=== PATIENT | male | born 1950 | race Caucasian/White ===

== ENCOUNTER 2024-12-29 00:14 | Day surgery (SDC) | payer BC, SELFPAY ==
[2024-12-13 13:40] VITALS: BMI 27.9
--- OUTSIDE RECORDS SUMMARY | 2024-12-29 00:16 | XMS_ITS | Encounter Summary ---
Author Organization [facility] Address [address] [place] [address] Care Team Providers Care Lime Sludge Kiln Operator Name Role Phone Ty Sykes MD Primary Care Provider [phone] Encounter Details Date Type Department Care Team (Late st Contact Info) Description 01/13/2023 Lab Requisition [facility] [address] [place] [id number] Bertrand Ernandez MD [address] [place] [address] Social History Tobacco Use Types Packs/Day Years Used Date Smoking Tobacco: Never Assessed Sex and Gender Information Value Date Recorded Sex Assigned at Not on file Gender Identity Not on file Sexual Orientation Not on file documented as of this encounter Plan of Treatment Not on file documented as of this encounter Procedures Procedure Name Priority Date/Time Associated Diagnosis Comments DERMATOPATHOLOGY Routine 01/13/2023 12:0 0 AM [facility] TESTER documented in this encounter Results * DERMATOPATHOLOGY (01/13/2023 12:00 AM ARGON TESTER) Case Report Dermatopathology Report Case: [id number] Authorizing Provider: Bertrand Ernandez MD Collected: 01/13/2023 12:00 AM Ordering Location: [facility] Received: 01/13/2023 02:27 PM Pathologist: Fatemeh Adan MD Specimen: Skin, posterior neck 12:43 PM [facility]ERMATOP[facility]ORATORY Final Diagnosis Specimen A. SKIN, posterior neck: BASAL CELL CARCINOMA, NODULAR TYPE (C44.41) PRESENT AT MARGIN DERMAL SCAR (L90.5) 12:43 PM [facility]ERMAT[facility] Clinical History Recur BCC. Check Margins. 3 12:43 PM [facility] DERMATOPATHOLOGY LABORATORY Gross Description Specimen A: Received is one formalin filled container labeled with the patient's name and designated posterior neck. The specimen consists of a shave biopsy measuring 8x6x2 mm. Jar 0. 3 12:43 PM [facility] DERMATOPATHOLOGY LABORATORY Microscopic Description Specimen A. SKIN, posterior neck: Within the dermis there are aggregates of basaloid cells with a high nuclear to cytoplasmic ratio and peripheral palisading. This lesion is present at the margin of the specimen. There are fibroblasts and collagen bundles oriented parallel to the skin surface with elongated blood vessels, some of which are oriented perpendicular to the skin surface. 3 12:43 PM [facility] DERMATOPATHOLOGY LABORATORY Disclaimer An external and internal positive and negative controls are appropriate for the histochemical, immunohistochemical and immunofluorescence stain(s) in this case (if any), except where stated explicitly. The performance characteristics of the stain(s) cited in this report were developed and its performance characteristic determined by the Dermatopathology Laboratory at [facility], directed by Dr. Soco Patel. These tests need not be, and therefore are not, approved by the [place] Food and Drug Administration. The tests are used for clinical purposes. Billing Codes Specimen Charges Stain Charges 12440 1 3 12:43 PM [facility] DERMATOPATHOLOGY LABORATORY Embedded Images 3 12:43 PM [facility] DERMATOPATHOLOGY LABORATORY Pathology/Cytolog y TISSUE SPECIMEN FROM SKIN / Unknown 01/13/2023 01/13/2023 2:27 PM [facility] Bertrand Ernandez MD LAB - PATHOLOGY/CYTO LOGY ORDERABLES DERMATOPATHOLOGY LABORATORY [facility] - Department of Dermatology [facility] Medicine [address] [place] [address], [address] [phone] documented in this encounter Visit Diagnoses Not on filedocumented in this encounter Care Teams Lime Sludge Kiln Operator Relationship Specialty Start Date End Date Ty Sykes MD [address] [place] [address] PCP - General 01/13/23 documented as of this encounter
--- OUTSIDE RECORDS SUMMARY | 2024-12-29 00:16 | XMS_ITS | Patient Health Summary ---
Author Organization [facility] Address [address] [facility] [address] Care Team Providers Care Scalp Treatment Operator Name Role Phone Ty Sykes MD Primary Care Provider Note from [facility],non-owned Affiliates and Associated Physician Practices is amultiple site organization consisting of ambulatory clinics and hospital sitesin [place], [place], [place]. This disclosure is being madepursuant to the Care Everywhere program and may not contain all information available regarding this patient. Last updated 18.[facility] Social History Tobacco Use Types Packs/Day Years Used Date Smoking Tobacco: Never Assessed Sex and Gender Information Value Date Recorded Sex Assigned at Not on file Gender Identity Not on file Sexual Orientation Not on file Procedures * DERMATOPATHOLOGY(Performed 03/26/2023) Performed for Basal cell carcinoma of skin of scalp and neck [ICD-10-CM] * DERMATOPATHOLOGY(Performed 01/13/2023) Results * DERMATOPATHOLOGY (03/26/2023 3:33 AM CDT) Only the most recent of2 resultswithin the time period is included. Case Report Dermatopathology Report Case: [id number] Authorizing Provider: Telma Michael MD Collected: 03/26/2023 03:33 AM Ordering Location: [facility] Received: 03/28/2023 01:21 PM Pathologist: Josiane Dobbs MD Specimen: Skin, posterior neck 3 4:08 PM CDT DERMATOPATHOLOGY LABORATORY Final Diagnosis Specimen A. SKIN, posterior neck: BASAL CELL CARCINOMA, NOT PRESENT AT MARGIN (C44.41) COMPOUND MELANOCYTIC NEVUS, IRRITATED; APPROXIMATES MARGIN (D22.4) DERMAL SCAR (L90.5) (see microscopic description) 3 4:08 PM CDT DERMATOPATHOLOGY LABORATORY Clinical History Basal Cell Carcinoma. Please Check Margins. See Prior Biopsy Report. 3 4:08 PM [facility] DERMATOPATHOLOGY LABORATORY Gross Description Specimen A: Received is one formalin filled container labeled with the patient's name and designated posterior neck. The specimen consists of a non-oriented ellipse of skin measuring [id number]. There is a lesion measuring 12x8mm and it is inked. The epidermal surface is unremarkable. The margin is inked green. The 12 o'clock and 6 o'clock tips are submitted in cassette 1. The remainder of the ellipse is serially sectioned and submitted in cassette 2 -4. Jar 0. 3 4:08 PM [facility] DERMATOPATHOLOGY LABORATORY Microscopic Description Specimen A. SKIN, posterior neck: Within the dermis there are aggregates of basaloid cells with a high nuclear to cytoplasmic ratio and peripheral palisading. This lesion is not present at the margin of the specimen. There is melanin pigment in the stratum corneum. There are nests of melanocytes at the dermal-epidermal junction and within the dermis. This lesion approximates the margin of the specimen. There are fibroblasts and collagen bundles oriented parallel to the skin surface with elongated blood vessels, some of which are oriented perpendicular to the skin surface. 3 4:08 PM [facility] DERMATOPATHOLOGY LABORATORY Disclaimer An external and internal positive and negative controls are appropriate for the histochemical, immunohistochemical and immunofluorescence stain(s) in this case (if any), except where stated explicitly. The performance characteristics of the stain(s) cited in this report were developed and its performance characteristic determined by the Dermatopathology Laboratory at [facility], directed by Dr. Soco Patel. These tests need not be, and therefore are not, approved by the [place] Food and Drug Administration. The tests are used for clinical purposes. Billing Codes Specimen Charges Stain Charges 60725 1 3 4:08 PM T DERMATOPATHOLOGY LABORATORY Embedded Images 3 4:08 PM [facility] DERMATOPATHOLOGY LABORATORY Pathology/Cytolo gy TISSUE SPECIMEN FROM SKIN / Unknown 03/26/2023 3:33 AM CDT 03/28/2023 1:21 PM CDT Telma Michael MD LAB - PATHOLOGY/CYTO LOGY ORDERABLES DERMATOPATHOLOGY LABORATORY [facility] - Department of Dermatology [address], [address] [phone] Care Teams Scalp Treatment Operator Relationship Specialty Start Date End Date Ty Sykes MD [address] [place] [id number] PCP - General 01/13/23
--- OUTSIDE RECORDS SUMMARY | 2024-12-29 00:16 | XMS_ITS | Clinical Summary ---
Author Organization [facility] Address [address] [place] [address] Care Team Providers Care Purchasing Officer Name Role Phone Ty Sykes MD Primary Care Provider [phone] Source Comments [facility],non-owned Affiliates and Associated Physician Practices is amultiple site organization consisting of ambulatory clinics and hospital sitesin [place], [place], [place] and [place]. This disclosure is being madepursuant to the Care Everywhere program and may not contain all information available regarding this patient. Last updated 18.[facility] [place] Social History Tobacco Use Types Packs/Day Years Used Date Smoking Tobacco: Never Assessed Sex and Gender Information Value Date Recorded Sex Assigned at Not on file Gender Identity Not on file Sexual Orientation Not on file Plan of Treatment Health Maintenance Due Date Last Done Comments HEPATITIS C SCREENING 05/02/1966 DTAP/TDAP/TD VACCINES (1 - Tdap) 1967 PNEUMOCOCCAL VACCINE 50+ (1 of 1 - PCV) 1998 ZOSTER VACCINE (1 of 2) 1998 Respiratory Syncytial Virus (RSV) Vaccine Pt: or over 60 yrs (1 - 1-dose 75+ series) 2023 COVID-19 VACCINE ( - 2023-2 5 season) 2024 INFLUENZA VACCINE (#1) 2024 DEPRESSION SCREENING 11/09/2024 HEPATITIS B VACCINE Aged Out No longe r eligible based on patient's age to complete this topic HIB VACCINE Aged Out No longer eligi ble based on patient's age to complete this topic HPV VACCINE Aged Out No longer eligi ble based on patient's age to complete this topic MENINGOCOCCAL (Group B) VACCINE Aged Out No longer eligible based on patient's age to complete this topic MENINGOCOCCAL VACCINE Aged Out No ileana romeo eligible based on patient's age to complete this topic Care Teams Purchasing Officer Relationship Specialty Start Date End Date Ty Sykes MD [address] [place] [address] PCP - General 01/13/23
--- OUTSIDE RECORDS SUMMARY | 2024-12-29 00:16 | XMS_ITS | Encounter Summary ---
Author Organization [facility] Address [address] [place] [address] Care Team Providers Care Horse Identifier Name Role Phone Ty Sykes MD Primary Care Provider [phone] Encounter Details Date Type Department Care Team (Late st Contact Info) Description 03/26/2023 Lab Requisition [facility] - DermPath Lab [address] [place] [address] Telma Michael MD [address] [place] [place] [address] Basal cell carcinoma of skin of scalp and neck Social History Tobacco Use Types Packs/Day Years Used Date Smoking Tobacco: Never Assessed Sex and Gender Information Value Date Recorded Sex Assigned at Not on file Gender Identity Not on file Sexual Orientation Not on file documented as of this encounter Plan of Treatment Not on file documented as of this encounter Procedures Procedure Name Priority Date/Time Associated Diagnosis Comments DERMATOPATHOLOGY Routine 03/26/2023 3:33 AM CDT Basal cell carcinoma of skin of scalp and neck [ICD-10-CM] documented in this encounter Results * DERMATOPATHOLOGY (03/26/2023 3:33 AM CDT) Case Report Dermatopathology Report Case: [id number] Authorizing Provider: Telma Michael MD Collected: 03/26/2023 03:33 AM Ordering Location: [facility] Lab Received: 03/28/2023 01:21 PM Pathologist: Josiane Dobbs MD Specimen: Skin, posterior neck 4:08 PM CDT DERMATOPATHOLOGY LABORATORY Final Diagnosis Specimen A. SKIN, posterior neck: BASAL CELL CARCINOMA, NOT PRESENT AT MARGIN (C44.41) COMPOUND MELANOCYTIC NEVUS, IRRITATED; APPROXIMATES MARGIN (D22.4) DERMAL SCAR (L90.5) (see microscopic description) 3 4:08 PM T DERMATOPATHOLOGY LABORATORY Clinical History Basal Cell Carcinoma. Please Check Margins. See Prior Biopsy Report. 3 4:08 PM T DERMATOPATHOLOGY LABORATORY Gross Description Specimen A: Received is one formalin filled container labeled with the patient's name and designated posterior neck. The specimen consists of a non-oriented ellipse of skin measuring [id number]. There is a lesion measuring 12x8mm and it is inked. The epidermal surface is unremarkable. The margin is inked green. The 12 o'clock and 6 o'clock tips are submitted in cassette 1. The remainder of the ellipse is serially sectioned and submitted in cassette 2 -4. Jar 0. 3 4:08 PM [facility] DERMATOPATHOLOGY LABORATORY Microscopic Description Specimen A. SKIN, [...] to the skin surface. 3 4:08 PM [facility] DERMATOPATHOLOGY LABORATORY Disclaimer An external and internal positive and negative controls are appropriate for the histochemical, immunohistochemical and immunofluorescence stain(s) in this case (if any), except where stated explicitly. The performance characteristics of the stain(s) cited in this report were developed and its performance characteristic determined by the Dermatopathology Laboratory at [facility], directed by Dr. Soco Patel. These tests need not be, and therefore are not, approved by the [place] Food and Drug Administration. The tests are used for clinical purposes. Billing Codes Specimen Charges Stain Charges 72959 1 3 4:08 PM CDT DERMATOPATHOLOGY LABORATORY Embedded Images 3 4:08 PM T DERMATOPATHOLOGY LABORATORY Pathology/Cytolo gy TISSUE SPECIMEN FROM SKIN / Unknown 03/26/2023 3:33 AM CDT 03/28/2023 1:21 PM CDT Telma Michael MD LAB - PATHOLOGY/CYTO LOGY ORDERABLES DERMATOPATHOLOGY LABORATORY [facility] Department of Dermatology [facility] Medicine [address] [place] [address], [address] [phone] documented in this encounter Visit Diagnoses Diagnosis Basal cell carcinoma of skin of scalp and neck Basal cell carcinoma of scalp and skin of neck documented in this encounter Care Teams Horse Identifier Relationship Specialty Start Date End Date Ty Sykes MD [address] [place] [id number] PCP - General 01/13/23 documented as of this encounter
--- OUTSIDE RECORDS SUMMARY | 2024-12-29 00:16 | XMS_ITS | Referral Summary ---
Author Organization [facility] Address [address] [place] [address] Care Team Providers Care Video Library Assistant Name Role Phone Ty Sykes MD Primary Care Provider Source Comments [facility],non-owned Affiliates and Associated Physician Practices is amultiple site organization consisting of ambulatory clinics and hospital sitesin [place], [place]. This disclosure is being madepursuant to the Care Everywhere program and may not contain all information available regarding this patient. Last updated 18.[facility] [employer] Social History Tobacco Use Types Packs/Day Years Used Date Smoking Tobacco: Never Assessed Sex and Gender Information Value Date Recorded Sex Assigned at Not on file Gender Identity Not on file Sexual Orientation Not on file Plan of Treatment Not on file Care Teams Video Library Assistant Relationship Specialty Start Date End Date Ty Sykes MD [address] [place] [address] PCP - General 01/13/23
[2024-12-29 06:58] VITALS: BP 138/80; PULSE 84; RESP 18; TEMP 36.1; O2SAT 98
[2024-12-29] MEDS: LACTATED RINGERS 1,000 ML 150 ML IV CONT (07:11)
--- NOTE | 2024-12-29 07:21 | WPDANESEPPF ---
Anes - Initial Pre Proc Eval Procedure: Operation Date: 12/29/24 08:00 Proposed Procedures p Screening Colonoscopy - Dada Tee MD Date/Time: 12/29/24 07:21 Surgeon: Dada Tee MD Pre Op Diagnosis: personal hx colon polyps Patient Data Age: 74 Gender: M Height: 1.8 m Weight: 91.2 kg Last Vital Signs Temp 97 F L 12/29/24 06:58 Pulse 84 12/29/24 06:58 Resp 18 12/29/24 06:58 BP 138/80 12/29/24 06:58 Pulse Ox 98 12/29/24 06:58 O2 Del Method Room Air 12/29/24 06:58 Allergies Allergy/AdvReac Type Severity Reaction Status Date / Time No Known Allergies Allergy Verified 12/29/24 06:56 Home Medications ?Medication ?Instructions ?Recorded ?Confirmed ?Type omega-3 fatty acids 1,000 mg 1,000 mg PO DAILY 12/03/20 12/29/24 History capsule (Fish Oil Concentrate) omeprazole 20 mg capsule,delayed 20 mg PO DAILY 12/03/20 12/29/24 History release cholecalciferol (vitamin D3) 50 50 mcg PO DAILY 12/04/20 12/29/24 History mcg (2,000 unit) capsule cetirizine 10 mg capsule (Zyrtec) 10 mg PO DAILY 09/10/22 12/29/24 History ascorbic acid (vitamin C) 1,000 mg 1 g PO DAILY 01/20/23 12/29/24 History tablet atorvastatin 20 mg tablet See Rx Instructions .Route 09/26/24 12/29/24 Rx .COMPLEX #90 tabs amlodipine 10 mg tablet See Rx Instructions .Route 11/21/24 12/29/24 Rx .COMPLEX #90 tabs valsartan 160 mg tablet 160 mg PO DAILY #90 tabs 11/22/24 12/29/24 Rx Patient hx anesthesia problems: none Family hx anesthesia problems: none Results Review: All pre-operative results and documents have been reviewed as part of the pre-operative evaluation. [facility] Past Medical History Medical History History of colon polyps Chronic GERD Hyperlipidemia Surgical History Surgical History History of appendectomy Family History Family History Mother , aorta blocked No problems noted. Father Lung cancer Social History Social History Social History: Smoked for 10 year - cigars Smoking status: Former smoker Tobacco type: cigars Second hand tobacco smoke exposure: Yes Smoking end date: 10/15/17 Alcohol intake: never Substance use: never Substance use type: does not use Lack of Transportation: No Lack of Food: Sometimes True Current Housing: I Have Housing Concerned About Future Housing: No Difficulty Paying Gas/Electric Bills: No Difficulty Paying for Meds: No Currently Unemployed: No Education: Bachelor's Degree Difficulty w/ Childcare or Family Care: No Living arrangements: with family Occupation/Education: retired 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: 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 HTN, hyperlipidemia, ex smoker, quit several years ago. Informed Consent: The patient's anesthetic plan and its attendant risks and benefits were discussed with the patient/family/POA. Questions were solicited and answers provided to the satisfaction of the patient/family/POA.
--- NOTE | 2024-12-29 07:51 | PM.HPGS ---
History of Present Illness History of Present Illness Consent: Risks, benefits, and alternatives have been discussed and questions answered. Patient agrees to proceed with procedure. Chief complaint: personal hx colon polyps Narrative: Jeremi Jansen is a 74 year old male with colon polyp 5 years ago Review of Systems Review of Systems: All systems reviewed & are unremarkable except as noted in HPI and below PMFSH Past Medical History Medical History History of colon polyps Chronic GERD Hyperlipidemia Surgical History Surgical History History of appendectomy Family History Family History Mother , aorta blocked No problems noted. Father Lung cancer Social History Social History Social History: Smoked for 10 year - cigars Smoking status: Former smoker Tobacco type: cigars Second hand tobacco smoke exposure: Yes Smoking end date: 10/15/17 Alcohol intake: never Substance use: never Substance use type: does not use Lack of Transportation: No Lack of Food: Sometimes True Current Housing: I Have Housing Concerned About Future Housing: No Difficulty Paying Gas/Electric Bills: No Difficulty Paying for Meds: No Currently Unemployed: No Education: Bachelor's Degree Difficulty w/ Childcare or Family Care: No Living arrangements: with family Occupation/Education: retired 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 Gender identity (if verbalized by the patient): Male Sexual Orientation (if Verbalized by the Patient): Straight or Heterosexual Meds Home Medications and Allergies Home Medications ?Medication ?Instructions ?Recorded ?Confirmed ?Type omega-3 fatty acids 1,000 mg 1,000 mg PO DAILY 12/03/20 12/29/24 History capsule (Fish Oil Concentrate) omeprazole 20 mg capsule,delayed 20 mg PO DAILY 12/03/20 12/29/24 History release cholecalciferol (vitamin D3) 50 50 mcg PO DAILY 12/04/20 12/29/24 History mcg (2,000 unit) capsule cetirizine 10 mg capsule (Zyrtec) 10 mg PO DAILY 09/10/22 12/29/24 History ascorbic acid (vitamin C) 1,000 mg 1 g PO DAILY 01/20/23 12/29/24 History tablet atorvastatin 20 mg tablet See Rx Instructions .Route 09/26/24 12/29/24 Rx .COMPLEX #90 tabs amlodipine 10 mg tablet See Rx Instructions .Route 11/21/24 12/29/24 Rx .COMPLEX #90 tabs valsartan 160 mg tablet 160 mg PO DAILY #90 tabs 11/22/24 12/29/24 Rx Allergies Allergy/AdvReac Type Severity Reaction Status Date / Time No Known Allergies Allergy Verified 12/29/24 06:56 Vital Signs Vital Signs - 24 hr 12/29/24 06:58 Temperature 97 F L Pulse Rate 84 Respiratory Rate 18 Blood Pressure 138/80 Pulse Oximetry 98 Oxygen Delivery Room Air Exam Const: General: comfortable and no acute distress HENMT: Face/Nose/Sinus: Normal nares present Eyes: General: appearance normal, both eyes and all related structures Neck: Neck: no JVD Resp: Auscultation: clear to auscultation bilaterally Cardio: Rate: regular rate Rhythm: regular rhythm GI: Inspection: non-distended GI Palp: Yes Soft to palpation Skin: General skin exam: normal color Neuro: General: gait normal Speech: normal speech Extrem: General: normal to inspection Psych: Mental Status: mental status grossly normal Assessment and Plan Assessment and plan (1) History of colon polyps: Code(s): Z86.010 - Personal history of colon polyps Status: Acute Assessment and Plan: colonoscopy
[2024-12-29 08:09] VITALS: BP 113/73; PULSE 62; RESP 12; O2SAT 92
[2024-12-29 08:19] VITALS: BP 114/74; PULSE 59; RESP 12; O2SAT 93
[2024-12-29 08:29] VITALS: BP 126/79; PULSE 64; RESP 22; O2SAT 96
== END 2024-12-29 08:40 | disposition home or self-care (01) ==
PROVIDERS: PCP Family Medicine; Referring Provider Family Medicine; Visit Provider Internal Medicine Gastroenterology
PROC: 0DJD8ZZ Inspection of Lower Intestinal Tract, Via Natural or Artificial Opening Endoscopic (ICD-10-PCS; CPT 45378; principal; 2024-12-29 08:00)
DX: Z12.11 Encounter for screening for malignant neoplasm of colon (principal); D12.2 Benign neoplasm of ascending colon; D12.3 Benign neoplasm of transverse colon; D12.4 Benign neoplasm of descending colon; K57.30 Diverticulosis of large intestine without perforation or abscess without bleeding; K64.8 Other hemorrhoids; Z87.891 Personal history of nicotine dependence
CPT/HCPCS: 45385; 88305; J2003; J2704; J7120

== ENCOUNTER 2025-10-25 14:31 | Outpatient (CLI) | payer BC, SELFPAY ==
--- NOTE | ~2025-10-25 | XR_ITS ---
EXAMINATION: XR chest 2V, 10/25/2025 14:38 [facility] HISTORY: R05.9 - Cough, unspecified COMPARISON: No comparisons available. Technique: 2 views obtained. Findings: The lungs are clear, no effusion. No pneumothorax. Heart is normal size. Mediastinal and hilar contours are within normal limits. Bony thorax no acute abnormality. Impression: No acute cardiopulmonary abnormality. Reviewed, dictated and finalized at location P. ER DRIER Impression: No acute cardiopulmonary abnormality.
--- OUTSIDE RECORDS SUMMARY | 2025-10-25 17:21 | XMS_ITS | Encounter Summary ---
Author Organization [facility] Address [address] [place] [address] Care Team Providers Care Assistant Professor Of Communication Name Role Phone Ty Sykes MD Primary Care Provider [phone] Encounter Details Date Type Department Care Team (Late st Contact Info) Description 01/13/2023 Lab Requisition [facility] DermPath Lab [address] [place] [address] [place] [address] [place] [id number] Social History Tobacco Use Types Packs/Day Years Used Date Smoking Tobacco: Never Assessed Sex and Gender Information Value Date Recorded Sex Assigned at Not on file Legal Sex Male 2:22 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 Gender Identity Not on file Sexual Orientation Not on file documented as of this encounter Plan of Treatment Not on file documented as of this encounter Procedures Procedure Name Priority Date/Time Associated Diagnosis Comments DERMATOPATHOLOGY Routine 01/13/2023 12:0 0 AM PICKED EDGE SEWING MACHINE OPERATOR documented in this encounter Results * DERMATOPATHOLOGY (01/13/2023 12:00 AM PICKED EDGE SEWING MACHINE OPERATOR) Case Report Dermatopathology Report Case: [id number] Authorizing Provider: Bertrand Ernandez MD Collected: 01/13/2023 12:00 AM Ordering Location: [facility] DermPath Lab Received: 01/13/2023 02:27 PM Pathologist: Fatemeh Adan MD Specimen: Skin, posterior neck 12:43 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 DERMATOPATHOLOGY LABORATORY Final Diagnosis Specimen A. SKIN, posterior neck: BASAL CELL CARCINOMA, NODULAR TYPE (C44.41) PRESENT AT MARGIN DERMAL SCAR (L90.5) 3 12:43 PM [facility] DERMATOPATHOLOGY LABORATORY at 1243 PICKED EDGE SEWING MACHINE OPERATOR Clinical History Recur BCC. Check Margins. 3 12:43 PM [facility] DERMATOPATHOLOGY LABORATORY Gross Description Specimen A: Received is one formalin filled container labeled with the patient's name and designated posterior neck. The specimen consists of a shave biopsy measuring 8x6x2 mm. Jar 0. 3 12:43 PM [facility] DERMATOPATHOLOGY LABORATORY Microscopic Description Specimen A. [...] to the skin surface. 3 12:43 PM [facility] DERMATOPATHOLOGY LABORATORY Disclaimer An external and internal positive and negative controls are appropriate for the histochemical, immunohistochemical and immunofluorescence stain(s) in this case (if any), except where stated explicitly. The performance characteristics of the stain(s) cited in this report were developed and its performance characteristic determined by the Dermatopathology Laboratory at [facility], directed by Dr. Soco Patel. These tests need not be, and therefore are not, approved by the [place] Food and Drug Administration. The tests are used for clinical purposes. Billing Codes Specimen Charges Stain Charges 19881 1 3 12:43 PM [facility] DERMATOPATHOLOGY LABORATORY Embedded Images 3 12:43 PM [facility] DERMATOPATHOLOGY LABORATORY Pathology/Cytolog y TISSUE SPECIMEN FROM SKIN / Unknown 01/13/2023 01/13/2023 2:27 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 us Bertrand Ernandez MD LAB - PATHOLOGY/CYTOLOGY ORDERAB LES Final Result DERMATOPATHOLOGY LABORATORY [facility] - Department of Dermatology [address], [address] [phone] documented in this encounter Visit Diagnoses Not on filedocumented in this encounter Care Teams Assistant Professor Of Communication Relationship Specialty Start Date End Date Ty Sykes MD [address] [place] [id number] PCP - General 01/13/23 documented as of this encounter
--- OUTSIDE RECORDS SUMMARY | 2025-10-25 17:21 | XMS_ITS | Encounter Summary ---
Author Organization [facility] Address [address] [place] [address] Care Team Providers Care Solid Propellant Processor Name Role Phone Ty Sykes MD Primary Care Provider [phone] Encounter Details Date Type Department Care Team (Late st Contact Info) Description 03/26/2023 Lab Requisition [facility] - DermPath Lab [address] [place] [phone] Telma Michael MD [address] [place] [address] [place] [address] Basal cell carcinoma of skin of scalp and neck Social History Tobacco Use Types Packs/Day Years Used Date Smoking Tobacco: Never Assessed Sex and Gender Information Value Date Recorded Sex Assigned at Not on file Legal Sex Male 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 SKIN, posterior neck: BASAL CELL CARCINOMA, NOT PRESENT AT MARGIN (C44.41) COMPOUND MELANOCYTIC NEVUS, IRRITATED; APPROXIMATES MARGIN (D22.4) DERMAL SCAR (L90.5) (see microscopic description) 3 4:08 PM [facility] DERMATOPATHOLOGY LABORATORY at 1607 CDT Clinical History Basal Cell Carcinoma. Please Check Margins. See Prior Biopsy Report. 3 4:08 PM [facility] DERMATOPATHOLOGY LABORATORY Gross Description Specimen A: Received is one formalin filled container labeled with the patient's name and designated posterior neck. The specimen consists of a non-oriented ellipse of skin measuring [id number]. There is a lesion measuring 12x8mm and it is inked. The epidermal surface is unremarkable. The margin is inked green. The 12 o'clock and 6 o'clock tips are submitted in cassette 1. The remainder of the ellipse is serially sectioned and submitted in cassette 2 -4. Jar 0. 3 4:08 PM [facility] DERMATOPATHOLOGY LABORATORY Microscopic Description Specimen A. SKIN, [...] to the skin surface. 3 4:08 PM [facility] DERMATOPATHOLOGY LABORATORY Disclaimer An external and internal positive and negative controls are appropriate for the histochemical, immunohistochemical and immunofluorescence stain(s) in this case (if any), except where stated explicitly. The performance characteristics of the stain(s) cited in this report were developed and its performance characteristic determined by the Dermatopathology Laboratory at [facility], directed by Dr. Soco Patel. These tests need not be, and therefore are not, approved by the [place] Food and Drug Administration. The tests are used for clinical purposes. Billing Codes Specimen Charges Stain Charges 58089 1 3 4:08 PM CDT DERMATOPATHOLOGY LABORATORY Embedded Images 3 4:08 PM CDT DERMATOPATHOLOGY LABORATORY Pathology/Cytolo gy TISSUE SPECIMEN FROM SKIN / Unknown 03/26/2023 3:33 AM CDT 03/28/2023 1:21 PM CDT us Telma Michael MD LAB - PATHOLOGY/CYTOLOGY ORDERAB LES Final Result DERMATOPATHOLOGY LABORATORY [facility] - Department of Dermatology [facility] Medicine [address] [place] [address], [address] [phone] documented in this encounter Visit Diagnoses Diagnosis Basal cell carcinoma of skin of scalp and neck Basal cell carcinoma of scalp and skin of neck documented in this encounter Care Teams Solid Propellant Processor Relationship Specialty Start Date End Date Ty Sykes MD [address] [place] [address] PCP - General 01/13/23 documented as of this encounter
--- OUTSIDE RECORDS SUMMARY | 2025-10-25 17:21 | XMS_ITS | Clinical Summary ---
Author Organization [email or web address] Address [address] [place] [address] Care Team Providers Care Ditch Tender Name Role Phone Ty Sykes MD Primary Care Provider Source Comments [email or web address],non-owned Affiliates and Associated Physician Practices is amultiple site organization consisting of ambulatory clinics and hospital sitesin [place], [place], [place] and [place]. This disclosure is being madepursuant to the Care Everywhere program and may not contain all information available regarding this patient. 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 Gender Identity Not on file Sexual Orientation Not on file Plan of Treatment Health Maintenance Due Date Last Done Comments HEPATITIS C SCREENING 05/02/1966 DTAP/TDAP/TD VACCINES (1 - Tdap) 1967 PNEUMOCOCCAL VACCINE 50+ (1 of 1 - PCV) 1998 ZOSTER VACCINE (1 of 2) 1998 Respiratory Syncytial Virus (RSV) Vaccine Pt: or over 60 yrs (1 - 1-dose 75+ series) 2023 DEPRESSION SCREENING 11/09/2024 COVID-19 VACCINE (1 - 2024-2 6 season) 2025 INFLUENZA VACCINE (#1) 2025 HEPATITIS B VACCINE Aged Out No longe r eligible based on patient's age to complete this topic HIB VACCINE Aged Out No longer eligi ble based on patient's age to complete this topic HPV VACCINE Aged Out No longer eligi ble based on patient's age to complete this topic MENINGOCOCCAL (Group B) VACC INE SHARED DECISION-MAKING Aged Out No longer eligibl e based on patient's age to complete this topic MENINGOCOCCAL GROUPS A/C/Y/W VACCINE Aged Out No longer eligible b ased on patient's age to complete this topic Insurance [facility] SELF PAY NO INSURANCE Member Subscriber Plan / Payer (Ef fective for All Dates) Name:Elisabeth Huertas Member ID:Not on file Relation to Subscriber:Not on file Name:ELISABETH HUERTAS Subscriber ID:Not on file (Home) Address: [address] [place] [address] Payer ID:Not on file Group ID:Not on file Type:Self Pay Address: [place], [place] [address] Care Teams Ditch Tender Relationship Specialty Start Date End Date Ty Sykes MD [address] [place] [id number] PCP - General 01/13/23
== END 2025-10-25 14:32 | disposition home or self-care (01) ==
PROVIDERS: PCP Family Medicine; Visit Provider Nurse Practitioner Family
DX: R05.9 Cough, unspecified (principal)
CPT/HCPCS: 71046